=== PATIENT | male | born 1955 ===

== ENCOUNTER 2024-03-09 15:19 | Emergency (ER) | payer OTHER, SELFPAY ==
[2024-03-09] VITALS (7 sets, daily range): BP systolic 133–187; BP diastolic 65–93; PULSE 50–71; RESP 15–19; TEMP 36.7; O2SAT 96–100; BMI 32.3
--- NOTE | 2024-03-09 15:35 | DI.RAD.S_ITS ---
PROCEDURE: XR CHEST 1V INDICATIONS: chest pain TECHNIQUE: One view of the chest was acquired. COMPARISON: None. FINDINGS: Surgical changes and devices: None. Lungs and pleura: Lungs are clear. No pleural effusions or pneumothorax. Mediastinum: Mediastinal contours appear normal. Heart size is normal. Bones and chest wall: No suspicious bony lesions. Overlying soft tissues appear unremarkable. IMPRESSION: No acute cardiopulmonary abnormality is seen. Approved by: Mya Mayo M.D.,Ph.D. on 03/09/2024 at 15:51
[2024-03-09 15:42] LABS: Add Manual Diff / Slide Review NO; Basophils Absolute Auto 100 /uL (0-100); Basophils Percent Auto 1.4 % (0-2); Eosinophils Absolute Auto 100 /uL (0-450); Eosinophils Percent Auto 1.9 % (2-4); Hemoglobin 15.1 g/dL (13.5-17.5); Lymphocytes Absolute Auto 1700 /uL (1100-4500); Lymphocytes Percent Auto 24.2 % (25-40); Mean Corpuscular HGB Conc 34.4 % (30-36); Mean Corpuscular Hemoglobin 28.9 PG (26-34); Mean Corpuscular Volume 84.1 fL (80-100); Monocytes Absolute Auto 600 /uL (0-900); Monocytes Percent Auto 8.2 % (3-14); Neutrophils Absolute Auto 4600 /uL (1500-7000); Neutrophils Percent Auto 64.3 % (50-75); Platelet Count 224 X10^3/uL (150-400); Red Blood Cell Count 5.23 X10^6/uL (4.5-5.9); Red Cell Distribution Width 14.3 % (11.6-14.8); White Blood Cell Count 7.2 X10^3/uL (4.5-11.0)
[2024-03-09 15:49] LABS: INR 0.9 (0.9-1.3); Prothrombin Time 10.8 SECONDS (9.4-12.5)
[2024-03-09 15:51] LABS: PTT Partial Thromboplastin Tim 36 SECONDS (25.1-36.5)
[2024-03-09 15:53] LABS: Alanine Aminotransferase 24 IU/L (<50); Albumin 4.7 g/dL (3.5-5.0); Albumin Globulin Ratio 1.9 (1.0-2.8); Alkaline Phosphatase 78 U/L (38-126); Aspartate Aminotransferase 25 IU/L (17-59); Bilirubin Total 2.6 mg/dL (0.2-1.3); Blood Urea Nitrogen 13 mg/dL (9-20); Calcium 9.1 mg/dL (8.4-10.2); Carbon Dioxide 29 mmol/L (22-32); Chloride 103 mmol/L (98-107); Creatine Kinase 79 U/L (55-170); Estimated Glomerular Filt Rate > 60 mL/min (>60); Globulin 2.5 g/dL (1.7-4.1); Glucose 112 mg/dL (80-110); HEMOLYSIS < 15 (0-50); Lipase 113 U/L (23-300); Potassium 3.7 mmol/L (3.4-5.1); Sodium 138 mmol/L (137-145); Total Protein 7.2 g/dL (6.3-8.2)
[2024-03-09 16:05] LABS: Troponin I < 0.012 ng/mL (0.01-0.034)
--- NOTE | 2024-03-09 18:14 | ED.CHESTPAIN ---
HPI - Chest Pain General Chief Complaint: Chest Pain Stated Complaint: chest pain Time Seen by Provider: 03/09/24 17:55 Source: patient and EMS Mode of arrival: EMS Limitations: no limitations History of Present Illness HPI narrative: 68-year-old male presents for evaluation of elevated blood pressure and chest pain. Patient states he woke up from a nap feeling ?off?. He states that he took his blood pressure and it was 180 systolic. He went to lay back down, but when he rechecked his blood pressure it was 190 systolic. He states he continued to feel poorly and told his family members to call 911. Patient reports stress test 2 weeks ago complicated by episode of ventricular tachycardia, reportedly caused by administration of atropine. He subsequently underwent a angiogram that was ?normal?. He is scheduled for a Holter monitor to be placed in the next several weeks. NOTE: Angiogram report from 02/28/2024: ' ?minimal nonobstructive coronary artery disease and major arteries. Moderate stenosis of small ostial 1st diagonal artery to be treated medically? Related Data Home Medications Medication Instructions Recorded Confirmed Cyclobenzaprine Hydrochloride 10 mg PO PRN ##0 10/15/08 (CYCLOBENZAPRINE HCL) ETODOLAC (Lodine) 400 mg PO BID ##0 10/15/08 HYDROCODONE/ACET 5/500 - 0 PO HS ##0 10/15/08 (Hydrocodon-Acetaminophen 5-500) LISINOPRIL (Zestril / Prinivil) 20 mg PO Q DAY ##0 10/15/08 Simvastatin (Zocor) 20 mg PO HS ##0 10/15/08 Trazodone Hydrochloride (Trazodone 50 mg PO HS ##0 10/15/08 HCl) [AMYLODIPINE] ##0 10/15/08 Allergies Allergy/AdvReac Type Severity Reaction Status Date / Time atropine Allergy Verified 03/09/24 15:29 ciprofloxacin Allergy Verified 03/09/24 15:29 fentanyl Allergy Verified 03/09/24 15:29 pravastatin Allergy Verified 03/09/24 15:29 Review of Systems Review of Systems Narrative: See HPI Patient History Social History Smoking Status: Never smoker Smoking Status: Never smoker alcohol intake frequency: other Substance Use Type: does not use Exam Initial Vital Signs Initial Vital Signs: Vital Signs Temperature 98.1 F 03/09/24 15:29 Pulse Rate 71 03/09/24 15:29 Respiratory Rate 18 03/09/24 15:29 Blood Pressure 187/93 H 03/09/24 15:29 Pulse Oximetry 100 03/09/24 15:29 Oxygen Delivery Method Room Air 03/09/24 15:29 Const: Awake, alert, no acute distress, nontoxic appearing Cardiac: Bradycardia, regular rhythm RESP: unlabored, clear bilaterally, no wheezing GI: Soft, nontender, nondistended, no rebound, no guarding MSK: Atraumatic, full range of motion, pulses equal Skin: Warm, Dry, intact, no rashes Neuro: AO x3, CN II-XII grossly intact, moves all extremities Course Orders Ordered: ED Orders 03/09/24 15:30 Complete Blood Count AUTO DIFF Stat Comprehensive Metabolic Panel Stat Lipase Stat Magnesium Stat PTT Partial Thromboplastin Catarino Stat Prothrombin Time INR Stat Troponin & CK Cardiac Panel Stat 03/09/24 15:35 XR chest 1V Stat EKG-12 Lead Stat 03/09/24 18:14 CT angio chest PE protocol Stat Vital Signs Vital signs: Vital Signs - 8 hr 03/09/24 15:29 03/09/24 15:36 03/09/24 17:06 Temperature 98.1 F Pulse Rate 71 58 L 58 L Respiratory Rate 18 16 16 Blood Pressure 187/93 H 152/82 H 152/72 H Pulse Oximetry 100 98 98 Oxygen Delivery Method Room Air Room Air Room Air 03/09/24 18:07 03/09/24 18:43 03/09/24 18:47 Temperature Pulse Rate 50 L 53 L 52 L Respiratory Rate 16 19 Blood Pressure 149/82 H Pulse Oximetry 98 99 98 Oxygen Delivery Method Room Air 03/09/24 18:47 03/09/24 19:00 03/09/24 19:00 Temperature Pulse Rate 50 L Respiratory Rate 15 Blood Pressure 144/70 H 133/65 Pulse Oximetry 96 Oxygen Delivery Method MDM - Chest Pain Differential Diagnosis Differential diagnosis: Likely fracture of rib, pneumothorax and stable angina Lab Data 03/09/24 15:30 03/09/24 15:30 Labs: Lab Results 03/09/24 Range/Units 15:30 WBC 7.2 (4.5-11.0) X10^3/uL RBC 5.23 (4.5-5.9) X10^6/uL Hgb 15.1 (13.5-17.5) g/dL Hct 44.0 (41-53) % MCV 84.1 (80-100) fL MCH 28.9 (26-34) PG MCHC 34.4 (30-36) % RDW 14.3 (11.6-14.8) % Plt Count 224 (150-400) X10^3/uL Neut % (Auto) 64.3 (50-75) % Lymph % (Auto) 24.2 L (25-40) % [place] % (Auto) 8.2 (3-14) % Eos % (Auto) 1.9 L (2-4) % Baso % (Auto) 1.4 (0-2) % Neut # (Auto) 4600 (3905-0839) /uL Lymph # (Auto) 1700 (9060-1670) /uL [place] # (Auto) 600 (0-900) /uL Eos # (Auto) 100 (0-450) /uL Baso # (Auto) 100 (0-100) /uL PT 10.8 (9.4-12.5) SECONDS INR 0.9 (0.9-1.3) APTT 36 (25.1-36.5) SECONDS Sodium 138 (137-145) mmol/L Potassium 3.7 (3.4-5.1) mmol/L Chloride 103 (98-107) mmol/L Carbon Dioxide 29 (22-32) mmol/L BUN 13 (9-20) mg/dL Creatinine 0.81 (0.66-1.25) mg/dL Estimated GFR > 60 (>60) mL/min BUN/Creatinine Ratio 16.0 (6-22) Glucose 112 H (80-110) mg/dL Calcium 9.1 (8.4-10.2) mg/dL Magnesium 2.0 (1.6-2.3) mg/dL Total Bilirubin 2.6 H (0.2-1.3) mg/dL AST 25 (17-59) IU/L ALT 24 (<50) IU/L Alkaline Phosphatase 78 (38-126) U/L Total Creatine Kinase 79 (55-170) U/L Troponin I < 0.012 (0.01-0.034) ng/mL Total Protein 7.2 (6.3-8.2) g/dL Albumin 4.7 (3.5-5.0) g/dL Globulin 2.5 (1.7-4.1) g/dL Albumin/Globulin Ratio 1.9 (1.0-2.8) Lipase 113 (23-300) U/L Imaging Data CT scan - chest: Radiologist's Impression: PROCEDURE: CT ANGIO CHEST PE PROTOCOL INDICATIONS: CHEST PAIN, RECENT HOSPITALIZATION TECHNIQUE: After the administration of intravenous contrast, 2 mm thick sections acquired from the pulmonary apices to the posterior costophrenic angles. 3-dimensional maximum intensity projection (MIP) coronal and sagittal reformats were then acquired through the thorax. For radiation dose reduction, the following was used: automated exposure control, adjustment of mA and/or kV according to patient size. COMPARISON: None. FINDINGS: Image quality: Diagnostic. Pulmonary arteries: Pulmonary arteries are normal in size, and demonstrate no intraluminal filling defects to suggest central pulmonary embolism. Lower Neck: No enlarged lymph nodes. Thyroid: No thyroid nodules which require sonographic follow up, per consensus guidelines. Axillae: No enlarged lymph nodes. Chest Wall: Unremarkable. Bones: Unremarkable. Lungs and Pleura: No pneumothorax or pleural effusions. No consolidation. Scattered pulmonary micro nodules, for example 2-3 mm right middle lobe nodule (5/149, MIP image 79). Heart: Heart size is normal. No pericardial effusion. Moderate coronary artery calcifications. Thoracic Vessels: No aortic aneurysm. Mediastinum and [place]: No enlarged lymph nodes. Esophagus: No wall thickening. No hiatal hernia. Upper Abdomen: Visualized upper abdomen solid organs and bowel loops appear normal. IMPRESSION: No pulmonary embolus. No acute cardiopulmonary process. Scattered pulmonary micronodules measuring up to 3 mm. If patient is high risk for lung malignancy, recommend follow-up CT in 12 months to demonstrate stability per Fleischner society guidelines. Approved by: Mya Mayo M.D.,Ph.D. on 03/09/2024 at 18:04 ECG Data Interpretation: Sinus bradycardia at 53 beats per minute. Occasional PVCs present. No ST T wave changes, no STEMI MDM Narrative Medical decision making narrative: Well-appearing patient with ongoing left-sided chest pain. Patient states that he has had ongoing intermittent chest pains since his hospital discharge 2 weeks prior. Catheterization report from hospitalization reviewed, he has no significant obstructing lesions present. Patient's V-tach was attributed to the medications administered during his nuclear stress test. EKG sinus bradycardia without concerning findings. Laboratory work reviewed. WBC count 7.2, hemoglobin 15.1, platelets 224, sodium 138, potassium 3.7, creatinine 0.81, T bili 2.6, AST 25, ALT 24, alk phos 78. Troponin undetectable. Chest x-ray and CT angio negative for acute findings. Incidental note 3 mm or smaller micronodules noted. Patient reports distant history of tobacco use but none in many years. T bili of uncertain significance, patient has no abdominal pain, he has history of cholecystectomy, there are no priors for comparison. Patient informed of lab and imaging findings. No obvious cause of chest pain found at this time, however with recent negative catheterization and normal laboratory work and imaging here patient stable for discharge home. He was advised to keep his cardiology follow up for his Holter monitor. Recommended keeping a blood pressure log and bring that to his follow up appointment. Discharge Plan Departure Patient Disposition: Home Clinical Impression: Chest pain Instructions: DI for Chest Pain Activity Restrictions/Additional Instructions: Your laboratory work, x-ray imaging, EKG, and CT imaging today was normal. I do not know the exact cause of your chest pain or elevated blood pressure readings, however this is reassuring that there is nothing ongoing today that will threaten her life. Incidentally your CT did note 3 mm pulmonary micronodules. There was nothing to do about these today, however I do recommend following up with your primary care doctor to see if additional or repeat imaging is needed in the years to come. Please follow up with your tankroom tender for your Holter monitor. Continue your blood pressure medications as previously prescribed. We talked about keeping a blood pressure diary with 1 measurement in the morning and 1 measurement in the evening. Please do this and bring this to your next primary or cardiology appointment. Prescriptions: No Action Cyclobenzaprine Hydrochloride (CYCLOBENZAPRINE HCL) 10 mg PO PRN Qty: 0 LISINOPRIL (Zestril / Prinivil) 20 mg PO Q DAY Qty: 0 Simvastatin (Zocor) 20 mg PO HS Qty: 0 ETODOLAC (Lodine) 400 mg PO BID Qty: 0 HYDROCODONE/ACET 5/500 - (Hydrocodon-Acetaminophen 5-500) 0 PO HS Qty: 0 Trazodone Hydrochloride (Trazodone HCl) 50 mg PO HS Qty: 0 [AMYLODIPINE] Qty: 0 Stand Alone Forms: Patient Portal/API
== END 2024-03-09 19:36 | disposition home or self-care (01) ==
PROVIDERS: Emergency Medicine; Emergency Provider Emergency Medicine
DX: R07.9 Chest pain, unspecified (principal); R00.1 Bradycardia, unspecified; R03.0 Elevated blood-pressure reading, without diagnosis of hypertension
CPT/HCPCS: 36415; 71045; 71275; 80053; 82550; 83690; 83735; 84484; 85025; 85610; 85730; 93005; 99284; Q9967